=== PATIENT | male | born 1960 | race Caucasian/White ===

== ENCOUNTER → 2017-10-21 | Outpatient (CLI) | payer OTHER ==
[~2017-10-21] MED LIST: ADDERALL XR 3030 MG PO; FLEXERIL10 MG PO; LIPITOR20 MG PO; PERCOCET 5/31 TABLET PO; ZESTRIL20 MG PO; ZUBSOLV 11.4-21 EACH SL; ZUBSOLV 5.7-1.1 EACH SL
== END | disposition home or self-care (01) ==
LOC: CDC 10:33
DX: Z79.899 Other long term (current) drug therapy (principal)
CPT/HCPCS: 93000